=== PATIENT | male | born 1985 | race Caucasian/White ===

== ENCOUNTER 2021-09-12 20:13 | Emergency (ER) | payer OTHER ==
[~2021-09-12] VITALS: Ht 195.6 cm; Wt 122.5 kg
[2021-09-12 21:03] VITALS: BP 166/98
[2021-09-12] MEDS ORDERED: IOHEXOL 350 MG/ML 100ML IJ ONE (21:05)
== END 2021-09-13 01:19 | disposition home or self-care (01) ==
LOC: ER 20:13 → EDUNIT# 20:13 → ER 09-13 01:19
DX: R51.9 Headache, unspecified (principal); M54.2 Cervicalgia; R07.89 Other chest pain; M79.10 Myalgia, unspecified site; E11.9 Type 2 diabetes mellitus without complications; Z88.2 Allergy status to sulfonamides; V43.62XA Car passenger injured in collision with other type car in traffic accident, initial encounter; Y93.89 Activity, other specified; Y92.410 Unspecified street and highway as the place of occurrence of the external cause; Y99.8 Other external cause status
CPT/HCPCS: 70450; 71260; 72125; 73562; 74177; 99285; Q9967